=== PATIENT | male | born 2000 | race Caucasian/White ===

== ENCOUNTER 2018-01-14 16:01 | Emergency (ER) | payer BC ==
--- NOTE | 2018-01-14 16:24 | Emergency Department Record ---
History of Present Illness - General Chief complaint: Rash Stated complaint: RASH/ALLERGIC REACTION? Time Seen by Provider: 01/14/18 16:15 Source: Patient Mode of Arrival: Ambulatory Limitations: No limitations - History of Present Illness Initial comments: Pt with mother with whole body urticaria. Itching and diffuse. No fever, no new food, detergent, exposures. No LONNIE or tightness to throat. Hx of reaction to Vancomycin. complaint: Rash Onset/Timin -: Days(s) Patient Tetanus UTD (within 5 yrs): Yes Severity: Moderate Severity scale (1-10): 1 - Related Data Previous Rx's Medication Instructions Recorded Diphenhydramine HCl [Benadryl] 50 mg PO Q6H 5 Days #20 cap 01/14/18 Famotidine [Pepcid] 20 mg PO DAILY 5 Days #10 tablet 01/14/18 Allergies Allergy/AdvReac Type Severity Reaction Status Date / Time No Known Drug Allergies Allergy Verified 01/14/18 16:12 Travel Screening - Travel/Exposure Within Last 30 Days Have you traveled within the last 30 days?: No - Travel/Exposure Within Last Year Have you traveled outside the [place] in the last year?: No - Additonal Travel Details Have you been exposed to anyone with a communicable illness?: No - Travel Symptoms Symptom Screening: None Review of Systems Constitutional: Denies: Chills, Fever, Weakness Eyes: Denies: Eye pain, Vision change ENT: Denies: Congestion Respiratory: Denies: Cough, Dyspnea, Wheezes Cardiovascular: Denies: Arrhythmia, Chest pain Endocrine: Denies: Fatigue Gastrointestinal: Denies: Abdominal pain, Diarrhea, Vomiting Genitourinary: Denies: Dysuria Musculoskeletal: Denies: Back pain Skin: Reports: As per HPI, Rash Neurological: Denies: Tingling, Weakness Past Medical History - SOCIAL HISTORY Smoking Status: Never smoker Alcohol Use: None Drug Use: None - RESPIRATORY Hx Respiratory Disorders: No - CARDIOVASCULAR Hx Cardio Disorders: No - NEURO Hx Neuro Disorders: No - GI Hx GI Disorders: No - Hx Genitourinary Disorders: No - ENDOCRINE Hx Endocrine Disorders: No - MUSCULOSKELETAL Hx Musculoskeletal Disorders: Yes Comment:: skull fx - PSYCH Hx Psych Problems: No - HEMATOLOGY/ONCOLOGY Hx Hematology/Oncology Disorders: No Family Medical History Any Significant Family History?: Yes Physical Exam - General General Appearance: Alert, Oriented x3, Cooperative, Mild distress Limitations: No limitations - Head Head exam: Atraumatic - Eye Eye exam: Normal appearance - ENT ENT exam: Normal exam Throat exam: Normal inspection. negative: Tonsillar erythema (uvula midline and not swollen. Airway patent) - Neck Neck exam: Normal inspection - Respiratory Respiratory exam: Normal lung sounds bilaterally. negative: Prolonged expiratory, Wheezes - Cardiovascular Cardiovascular Exam: Regular rate, Normal rhythm - GI/Abdominal GI/Abdominal exam: Soft. negative: Tenderness - Rectal Rectal exam: Deferred - exam: Deferred - Extremities Extremities exam: Normal inspection - Neurological Neurological exam: Alert, Normal gait, Oriented X3 - Psychiatric Psychiatric exam: Normal affect, Normal mood - Skin Skin exam: Rash, Urticaria (diffuse to entire body. No weeping or crusting. ) Course Vital Signs 01/14/18 16:07 Temperature 97.5 F L Pulse Rate 85 Respiratory 18 Rate Blood Pressure 109/52 Pulse Ox 99 Disposition Disposition: Discharge Clinical Impression: Urticaria, Allergic dermatitis Disposition: Home, Self-Care Return To Work/School Note Provided: No Condition: (1) Good Instructions: Urticaria (ED) Prescriptions: Diphenhydramine HCl [Benadryl] 50 mg PO Q6H 5 Days #20 cap Famotidine [Pepcid] 20 mg PO DAILY 5 Days #10 tablet Forms: Patient Portal Access Quality - Quality Measures Quality Measures: N/A - Blood Pressure Screening Does Patient Have Any of the Following: No Blood Pressure Classification: Normal BP Reading Systolic Measurement: 109 Diastolic Measurement: 52 Screening for High Blood Pressure: < Normal BP, F/U Not Required > [[id number]]
[2018-01-14] MEDS: DEXAMETHASONE SOD PHOSPHATE 10MG/ML VIAL IVP ONE (16:42)
[2018-01-14] MEDS: DIPHENHYDRAMINE HCL 50 MG/ML VIAL IVP ONE (16:44)
[2018-01-14] MEDS: FAMOTIDINE IV 20 MG/2 ML VIAL IVP ONE (16:45)
== END 2018-01-14 17:31 | disposition home or self-care (01) ==
LOC: ER 16:01
DX: L23.9 Allergic contact dermatitis, unspecified cause (principal)
CPT/HCPCS: 96374; 96375; 99284; J1200; J3490